=== PATIENT | female | born 1940 | race Caucasian/White ===

== ENCOUNTER 2019-08-17 11:37 | Emergency (ER) | payer OTHER ==
[~2019-08-17] VITALS: Ht 167.6 cm; Wt 70.8 kg
[~2019-08-17 11:37] MED LIST: CENTRUM SILVER1 EAC5 PO; CIPRO500 MG PO; SYNTHROID50 MCG PO
[2019-08-17 12:37] LABS: APTT 21.7 Seconds (25.0-31.3); PROTIME 10.3 Seconds (9.20-11.50)
[2019-08-17 12:53] LABS: ABSOLUTE BASOPHILS 0.1 thou/uL (0.0-0.2); ABSOLUTE LYMPHOCYTES 1.7 thou/uL (0.8-5.3); ABSOLUTE MONOCYTES 0.4 thou/uL (0.0-1.2); ABSOLUTE NEUTROPHILS 5.8 thou/uL (1.6-8.1); BASOPHILS 0.9 %; EOSINOPHILS 0.5 %; HEMATOCRIT 42.7 % (37.0-47.0); HEMOGLOBIN 14.7 gm/dL (12.0-15.0); LYMPHOCYTES 21.3 %; MCH 30.1 pg (26.0-34.0); MCHC 34.5 g/dL (28.0-37.0); MCV 87.4 fL (80.0-100.0); MONOCYTES 5.6 %; MPV 9.2 fl. (7.2-11.1); NUCLEATED RBCS 0 /100WBC; PLATELET COUNT* 199 thou/uL (150-400); POLYS 71.7 %; RBC 4.89 mil/uL (4.20-5.00); RDW-CV 13.3 % (10.5-14.5); WBC 8.1 thou/uL (4.0-11.0)
[2019-08-17 13:00] LABS: CALCIUM 8.8 mg/dL (8.5-10.1); POTASSIUM 4.4 mmol/L (3.5-5.1)
[2019-08-17 13:05] LABS: ALBUMIN 3.8 g/dL (3.4-5.0); TOTAL BILIRUBIN 0.6 mg/dL (<0.1-1.0)
[2019-08-17 14:12] LABS: URINE BILIRUBIN NEGATIVE (Negative); URINE BLOOD NEGATIVE (Negative); URINE CLARITY CLEAR; URINE COLOR YELLOW; URINE GLUCOSE-RANDOM NEGATIVE (Negative); URINE KETONES TRACE (Negative); URINE LEUKOCYTES-REFLEX 2+ (Negative); URINE NITRITE-REFLEX NEGATIVE (Negative); URINE PROTEIN NEGATIVE (Negative); URINE UROBILINOGEN 0.2 E.U./dl (0.2-1.0)
[2019-08-17 14:17] LABS: SQUAMOUS NONE SEEN /LPF (0-3); URINE WBC-REFLEX 6-15 Few /HPF (0-5)
[2019-08-17 14:18] LABS: BACTERIA-REFLEX 1-9 Few /HPF (None Seen); URINE RBC None Seen /HPF (0-2)
[2019-08-17 14:19] LABS: CASTS None Seen /LPF (None Seen); CRYSTALS None Seen /LPF (None Seen); MUCUS 0-3 Light strn/LPF (None Seen)
[2019-08-17] MEDS ORDERED: BACTRIM DS TAB1 EAC1 PO (14:32)
[2019-08-17] MEDS ORDERED: MIRALAX17 GM PO (14:32)
[2019-08-17] MEDS ORDERED: MAGNESIUM CITR296 ML PO (14:32)
[2019-08-17 14:51] VITALS: BP 125/92
--- NOTE | 2019-08-17 16:56 | EKG ---
[place] [address] ELECTROCARDIOGRAM REPORT Name: ALFONSO KONG Room: [facility]#: [id number] Admission: 08/17/19 Attend Phys: Discharge: 08/17/19 Date of : 40 Date of Service: 08/17/19 1145 Report #: [id number] THIS REPORT FOR: //name// [facility] ED Test Date: 2019-08-17 Test Time: 11:45:23 Pat Name: ALFONSO KONG Department: Room: Gender: F Clothing Cutter: : 1940 Requested By: Antoine Lundberg Order Number: [id number] MD: Rafy Farr Measurements Intervals [place] Rate: 59 P: 47 [place]: 179 QRS: -40 QRSD: 110 T: 1 QT: 429 QTc: 425 Interpretive Statements Sinus rhythm Abnormal R-wave progression, early transition Left ventricular hypertrophy Inferior infarct, old possible Compared to ECG 04/17/2017 14:53:59 Myocardial infarct finding now present T-wave abnormality no longer present Electronically Signed On 08-17-2019 16:55:21 [employer]LL FINISH[employer] by Rafy Farr [email or web address] <ELECTRONICALLY SIGNED> By: Rafy Farr MD, FAC 08/17/19 1655 1145 1145 Rafy Farr MD, FAC /EPI
== END 2019-08-17 14:53 | disposition home or self-care (01) ==
LOC: M.ERS 11:37
PROVIDERS: Physician Assistant
DX: N39.0 Urinary tract infection, site not specified (principal); K59.00 Constipation, unspecified; R00.2 Palpitations; R19.7 Diarrhea, unspecified; E03.9 Hypothyroidism, unspecified; Z90.710 Acquired absence of both cervix and uterus

== ENCOUNTER → 2021-07-13 | Emergency (ER) | payer OTHER ==
[~2021-07-13] VITALS: Ht 167.6 cm; Wt 75.8 kg
[~2021-07-13] MED LIST changes: +BACTRIM DS TAB1 EAC1 PO; +MAGNESIUM CITR296 ML PO; +MIRALAX17 GM PO
[2021-07-13 10:17] VITALS: BP 176/73
--- NOTE | 2021-07-14 17:57 | EKG ---
[place] [address] ELECTROCARDIOGRAM REPORT Name: ALFONSO KONG Room: [facility]#: [id number] Admission: 07/13/21 Attend Phys: Discharge: Date of : 40 Date of Service: 07/13/21 1014 Report #: [id number] THIS REPORT FOR: //name// [facility] ED Test Date: 2021-07-13 Test Time: 10:14:48 Pat Name: ALFONSO KONG Department: Room: Gender: Industrial Electrician: : 1940 Requested By: Antoine Lundberg Order Number: [id number] Corina MD: Abdiel Gonzales Measurements Intervals [place] Rate: 50 P: 57 PA: 182 QRS: -29 QRSD: 113 T: 3 QT: 440 QTc: 402 Interpretive Statements Sinus rhythm Incomplete right bundle branch block Left ventricular hypertrophy, by voltage Probable anterior infarct, age indeterminate Compared to ECG 08/17/2019 11:45:23 Incomplete right bundle-branch block now present Myocardial infarct finding still present Electronically Signed On 07-14-2021 17:57:12 [employer] by Abdiel Gonzales [email or web address] <ELECTRONICALLY SIGNED> By: Abdiel Gonzales MD, FAC 07/14/21 1757 1014 1014 Abdiel Gonzales MD, [facility] /EPI
== END ==
LOC: M.ERS 10:10
DX: R07.89 Other chest pain (principal); N64.4 Mastodynia; Z53.21 Procedure and treatment not carried out due to patient leaving prior to being seen by health care provider